=== PATIENT | male | born 1955 | race Caucasian/White ===

== ENCOUNTER 2016-02-21 06:54 | Day surgery (SDC) | payer OTHER ==
[~2016-02-21] VITALS: Ht 182.1 cm; Wt 83.9 kg
[~2016-02-21 06:54] MED LIST: CALCIUM500 M4 PO; CILOSTAZOL100 MG PO; ECHINACEA 5001 EACH PO; FISH OIL500 MG PO; LEXAPRO20 MG PO; POTASSIUM GLUCO99 M1 PO; PROTONIX40 MG PO; ZIAC 5/6.251 TABLET PO
== END 2016-02-21 12:00 | disposition home or self-care (01) ==
LOC: CATH 06:54
PROC: 04H033Z Insertion of Infusion Device into Abdominal Aorta, Percutaneous Approach (ICD-10-PCS; principal; 2016-02-21)
DX: I70.213 Atherosclerosis of native arteries of extremities with intermittent claudication, bilateral legs (principal); I70.92 Chronic total occlusion of artery of the extremities; I10 Essential (primary) hypertension
CPT/HCPCS: C1760; C1769; C1887; C1894; J0690; J1644; J2250; J3010; S0020

== ENCOUNTER 2016-03-18 07:29 | Day surgery (SDC) | payer OTHER ==
[~2016-03-18] VITALS: Ht 182.9 cm; Wt 81.7 kg
== END 2016-03-18 12:05 | disposition home or self-care (01) ==
LOC: CATH 07:29
DX: I70.212 Atherosclerosis of native arteries of extremities with intermittent claudication, left leg (principal); I70.92 Chronic total occlusion of artery of the extremities; I10 Essential (primary) hypertension
CPT/HCPCS: C1760; C1769; C1887; C1894; J1644; J2250; J3010; S0020

== ENCOUNTER 2017-08-26 20:11 | Inpatient (IN) | payer OTHER ==
[~2017-08-26] VITALS: Ht 182.9 cm; Wt 94.4 kg
[~2017-08-26 20:11] MED LIST changes: +FISH OIL 500 M1 EAC3 PO; -FISH OIL500 MG PO; +ZIAC 10/6.251 TABLET PO; -ZIAC 5/6.251 TABLET PO
[2017-08-26 20:56] LABS: HEMATOCRIT 35.4 % (38.0-50.0); HEMOGLOBIN 12.4 G/DL (12.5-16.6); MCH 32.3 PG (29.0-34.0); MCV 92.2 FL (86-99); PLATELET COUNT 299 K/uL (156-360); RBC DIS.WIDTH-CV 12.4 % (11.8-14.6); RBC DIS.WIDTH-SD 41.3 % (39-53); RED BLOOD COUNT 3.84 M/uL (4.00-5.50); WHITE BLOOD COUNT 17.1 K/uL (4.1-10.2)
[2017-08-26 21:06] LABS: CHLORIDE 101 mEq/L (99-109); POTASSIUM 3.6 mEq/L (3.7-5.4); SODIUM 139 mEq/L (136-147)
[2017-08-26 21:07] LABS: GLUCOSE 193 mg/dL (70-99)
[2017-08-26 21:11] LABS: CREATININE 1.4 mg/dL (0.6-1.3); GFR ESTIMATE (CALCULATED) 54 mL/min/ (58.99-99999)
[2017-08-26 21:12] LABS: UREA NITROGEN (BUN) 22 mg/dL (9-23)
[2017-08-27 00:41] LABS: APPEARANCE CLOUDY ((CLEAR)); BILIRUBIN NEGATIVE; BLOOD LARGE; GLUCOSE (STRIP) NEGATIVE; KETONES NEGATIVE; LEUKOCYTES NEGATIVE; NITRITE NEGATIVE; PROTEIN (STRIP) 100; SPECIFIC GRAVITY 1.024 (1.000-1.030); UROBILINOGEN 0.2 MG/DL (0.2-1.0)
[2017-08-27 00:44] LABS: COLOR RED ((YELLOW))
[2017-08-27 00:58] LABS: RED BLOOD CELLS TNTC /HPF (0-5); UCUL ADDED? YES
[2017-08-27 03:21] LABS: INTER. NORMALIZED RATIO ND
[2017-08-27 05:00] VITALS: BP 191/95
[2017-08-27 06:27] LABS: HEMATOCRIT 27.9 % (38.0-50.0); MCH 31.2 PG (29.0-34.0); MCHC 34.4 G/DL (30.0-36.0); MCV 90.6 FL (86-99); PLATELET COUNT 224 K/uL (156-360); RBC DIS.WIDTH-CV 12.4 % (11.8-14.6); RBC DIS.WIDTH-SD 40.2 % (39-53); RED BLOOD COUNT 3.08 M/uL (4.00-5.50); WHITE BLOOD COUNT 13.1 K/uL (4.1-10.2)
[2017-08-27 06:41] LABS: HEMOGLOBIN 9.6 G/DL (12.5-16.6)
[2017-08-27 06:49] LABS: INTER. NORMALIZED RATIO ND
[2017-08-27 07:10] LABS: ALBUMIN 3.6 G/DL (3.2-4.8); ALKALINE PHOSPHATASE 65 IU/L (3-129); ALT (GPT) 19 IU/L (3-49); AST (GOT) 19 IU/L (2-34); CHLORIDE 101 MEQ/L (99-109); CREATININE 1.6 MG/DL (0.6-1.3); GFR ESTIMATE (CALCULATED) 47 mL/min/ (58.99-99999); GLUCOSE 155 mg/dL (70-99); POTASSIUM 3.7 MEQ/L (3.7-5.4); SODIUM 134 MEQ/L (136-147); TOTAL PROTEIN 5.5 G/DL (6.4-8.3); UREA NITROGEN (BUN) 28 mg/dL (9-23)
[2017-08-27 07:35] VITALS: BP 148/97
[2017-08-27] MEDS ORDERED: LO-DOSE ASPIRIN81 M1 PO (15:26)
[2017-08-27] MEDS ORDERED: ATORVASTATIN CA80 MG PO (15:26)
[2017-08-27 15:34] VITALS: BP 128/65
[2017-08-27 18:04] LABS: HEMATOCRIT 23.6 % (38.0-50.0); HEMOGLOBIN 8.3 G/DL (12.5-16.6); MCV 92.2 FL (86-99)
[2017-08-27 19:45] VITALS: BP 174/84
[2017-08-27 22:33] VITALS: BP 139/77
[2017-08-28] VITALS (26 sets, daily range): BP systolic 84–168; BP diastolic 57–111
[2017-08-28 03:06] LABS: BASOPHIL (%) 0.3 % (0-1); EOSINOPHIL (%) 0.4 % (0-5); EOSINOPHIL COUNT 0.1 K/uL (0-0.3); HEMATOCRIT 23.9 % (38.0-50.0); HEMOGLOBIN 8.6 G/DL (12.5-16.6); IMMATURE GRANULOCYTE (%) 0.6 % (0.0-0.7); LYMPHOCYTE (%) 12.3 % (15-42); LYMPHOCYTE COUNT 1.7 K/uL (1.0-2.8); MCH 32.6 PG (29.0-34.0); MCV 90.5 FL (86-99); MONOCYTE (%) 10.9 % (3-12); MONOCYTE COUNT 1.5 K/uL (0-0.8); NEUTROPHIL (%) 75.5 % (45-76); NEUTROPHIL COUNT 10.6 K/uL (1.8-6.4); PLATELET COUNT 206 K/uL (156-360); RBC DIS.WIDTH-SD 42.3 % (39-53); RED BLOOD COUNT 2.64 M/uL (4.00-5.50); WHITE BLOOD COUNT 14.1 K/uL (4.1-10.2)
[2017-08-28 03:47] LABS: HEMATOCRIT 18.9 % (38.0-50.0); MCH 32.9 PG (29.0-34.0); MCV 91.3 FL (86-99); PLATELET COUNT 241 K/uL (156-360); RBC DIS.WIDTH-CV 12.9 % (11.8-14.6); RBC DIS.WIDTH-SD 42.3 % (39-53)
[2017-08-28 03:54] LABS: HEMOGLOBIN 6.8 G/DL (12.5-16.6); RED BLOOD COUNT 2.07 M/uL (4.00-5.50)
[2017-08-28 04:14] LABS: ALBUMIN 3.2 g/dL (3.2-4.8)
[2017-08-28 04:15] LABS: CHLORIDE 100 mEq/L (99-109); POTASSIUM 3.8 mEq/L (3.7-5.4); SODIUM 133 mEq/L (136-147)
[2017-08-28 04:17] LABS: GLUCOSE 151 mg/dL (70-99); TOTAL PROTEIN 5.2 g/dL (6.4-8.3)
[2017-08-28 04:19] LABS: TOTAL BILIRUBIN 1.2 mg/dL (0.0-1.0)
[2017-08-28 04:20] LABS: ALKALINE PHOSPHATASE 57 IU/L (3-129)
[2017-08-28 04:21] LABS: GFR ESTIMATE (CALCULATED) 27 mL/min/ (58.99-99999)
[2017-08-28 04:22] LABS: AST (GOT) 23 IU/L (2-34); UREA NITROGEN (BUN) 36 mg/dL (9-23)
[2017-08-28 04:24] LABS: ALT (GPT) 18 IU/L (3-49)
[2017-08-28 04:26] LABS: CREATININE 2.6 mg/dL (0.6-1.3)
[2017-08-28 09:13] LABS: APPEARANCE CLOUDY ((CLEAR)); BILIRUBIN NEGATIVE; BLOOD LARGE; COLOR AMBER ((YELLOW)); GLUCOSE (STRIP) NEGATIVE; KETONES NEGATIVE; LEUKOCYTES NEGATIVE; NITRITE NEGATIVE; PROTEIN (STRIP) 100; SPECIFIC GRAVITY 1.032 (1.000-1.030); UROBILINOGEN 0.2 MG/DL (0.2-1.0)
[2017-08-28 09:19] LABS: BACTERIA NONE SEEN /HPF; EPITHELIAL CELLS RARE /HPF; MUCUS 2+ /LPF; RED BLOOD CELLS TNTC /HPF (0-5); UCUL ADDED? YES; WHITE BLOOD CELLS 15-20 /HPF (0-5)
[2017-08-28 09:23] LABS: RETICULOCYTE COUNT 5.3 % (0.5-1.8)
[2017-08-28 09:26] LABS: HEMATOCRIT 17.7 % (38.0-50.0); MCHC 35.6 G/DL (30.0-36.0); MCV 92.7 FL (86-99); PLATELET COUNT 261 K/uL (156-360); RBC DIS.WIDTH-CV 13.2 % (11.8-14.6); RBC DIS.WIDTH-SD 43.4 % (39-53); RED BLOOD COUNT 1.91 M/uL (4.00-5.50); WHITE BLOOD COUNT 17.3 K/uL (4.1-10.2)
[2017-08-28 09:27] LABS: HEMATOCRIT 17.3 % (38.0-50.0); HEMOGLOBIN 6.3 G/DL (12.5-16.6); MCH 33.5 PG (29.0-34.0); MCHC 36.4 G/DL (30.0-36.0); PLATELET COUNT 258 K/uL (156-360); RBC DIS.WIDTH-CV 13.1 % (11.8-14.6); RBC DIS.WIDTH-SD 42.7 % (39-53); RED BLOOD COUNT 1.88 M/uL (4.00-5.50); WHITE BLOOD COUNT 17.4 K/uL (4.1-10.2)
[2017-08-28 09:29] LABS: HEMOGLOBIN 6.3 G/DL (12.5-16.6)
[2017-08-28 09:53] LABS: FIBRINOGEN 469 mg/dL (150-450); INTER. NORMALIZED RATIO 10.3
[2017-08-28 09:54] LABS: ABS NEUTROPHIL COUNT 15.2; ANISOCYTOSIS 1+; EOSINOPHIL ABS CT 0; HYPOCHROMASIA 1+; LYMPHOCYTES 10.1 % (15.0-45.0); MICROCYTOSIS 1+; MONOCYTES 2.3 % (0-9.0); NUCLEATED RBC'S 3.4; PLAT.SUFFICIENCY ADEQUATE; POIKILOCYTOSIS 1+; POLYCHROMASIA 2+; SEG.NEUTROPHILS 87.6 % (46.0-76.0); SMUDGE CELLS 43.8
[2017-08-28 10:02] LABS: UR CREATININE CONCENTRATION 189.6 MG/DL
[2017-08-28 10:09] LABS: BASOPHIL (%) 0.2 % (0-1); EOSINOPHIL (%) 0 % (0-5); IMMATURE GRANULOCYTE (%) 1.2 % (0.0-0.7); LYMPHOCYTE (%) 7.3 % (15-42); LYMPHOCYTE COUNT 1.3 K/uL (1.0-2.8); MONOCYTE (%) 7.4 % (3-12); MONOCYTE COUNT 1.3 K/uL (0-0.8); NEUTROPHIL (%) 83.9 % (45-76); NEUTROPHIL COUNT 14.5 K/uL (1.8-6.4)
[2017-08-28 10:13] LABS: D-DIMER LATEX NEGATIVE
[2017-08-28 10:14] LABS: SCHISTOCYTES NONE SEEN
[2017-08-28 10:15] LABS: ALBUMIN 3.2 G/DL (3.2-4.8); ALKALINE PHOSPHATASE 45 IU/L (3-129); ALT (GPT) 15 IU/L (3-49); AST (GOT) 21 IU/L (2-34); CHLORIDE 99 MEQ/L (99-109); GFR ESTIMATE (CALCULATED) 23 mL/min/ (58.99-99999); GLUCOSE 180 mg/dL (70-99); LACTATE DEHYDROGENASE 209 IU/L (20-246); POTASSIUM 4.1 MEQ/L (3.7-5.4); SODIUM 133 MEQ/L (136-147); THYROTROPIN (TSH) 2.3 MIU/L (0.4-5.5); TRIGLYCERIDES 692 MG/DL (Normal: <150); UREA NITROGEN (BUN) 40 mg/dL (9-23)
[2017-08-28 10:18] LABS: HIGH-SENS C-REACTIVE PROTEIN 14.65 MG/DL (0.02-0.20); TOTAL BILIRUBIN 1.6 MG/DL (0.0-1.0)
[2017-08-28 11:17] LABS: IMMEDIATE MIX PTT 24.8 SEC; PTT BASELINE 57 SEC (25-32)
[2017-08-28 11:26] LABS: HEPATITIS B SURFACE ANTIGEN Nonreactive; HEPATITIS C ANTIBODY Nonreactive
[2017-08-28 11:27] LABS: ANTI-HEPATITIS A VIRUS (IGM) Nonreactive
[2017-08-28 11:28] LABS: ANTI-HEPATITIS B CORE (IGM) Nonreactive; HIV-1/2 AB/AG COMBO Nonreactive
[2017-08-28 12:48] LABS: 60 MINUTE INCUBATION PTT 25.7
[2017-08-28 15:55] LABS: BENZODIAZEPINES, URINE SCREEN Negative (200 ng/mL)
[2017-08-28 18:29] LABS: HEMATOCRIT 19.1 % (38.0-50.0); MCH 32.1 PG (29.0-34.0); MCHC 35.6 G/DL (30.0-36.0); MCV 90.1 FL (86-99); NRBC (%) 0.2 /100 WBC (0-0); RBC DIS.WIDTH-SD 45.6 % (39-53); RED BLOOD COUNT 2.12 M/uL (4.00-5.50); WHITE BLOOD COUNT 9.1 K/uL (4.1-10.2)
[2017-08-28 18:32] LABS: HEMOGLOBIN 6.8 G/DL (12.5-16.6)
[2017-08-28 19:09] LABS: PLAT.SUFFICIENCY ADEQUATE; PLATELET COUNT 162 K/uL (156-360)
[2017-08-28 19:25] LABS: INTER. NORMALIZED RATIO 1.4; PTT 29.5 SEC (25-37)
[2017-08-29] VITALS (29 sets, daily range): BP systolic 91–127; BP diastolic 48–78
[2017-08-29 05:34] LABS: BASOPHIL (%) 0.1 % (0-1); EOSINOPHIL (%) 0.1 % (0-5); HEMATOCRIT 23.1 % (38.0-50.0); HEMOGLOBIN 7.8 G/DL (12.5-16.6); IMMATURE GRANULOCYTE (%) 0.9 % (0.0-0.7); LYMPHOCYTE (%) 4.1 % (15-42); LYMPHOCYTE COUNT 0.4 K/uL (1.0-2.8); MCH 29.5 PG (29.0-34.0); MCHC 33.8 G/DL (30.0-36.0); MCV 87.5 FL (86-99); MONOCYTE (%) 2.9 % (3-12); MONOCYTE COUNT 0.3 K/uL (0-0.8); NEUTROPHIL (%) 91.9 % (45-76); NEUTROPHIL COUNT 8.8 K/uL (1.8-6.4); PLATELET COUNT 148 K/uL (156-360); RBC DIS.WIDTH-SD 50.6 % (39-53); WHITE BLOOD COUNT 9.5 K/uL (4.1-10.2)
[2017-08-29 05:39] LABS: INTER. NORMALIZED RATIO 2.1
[2017-08-29 05:42] LABS: PTT 32.6 SEC (25-37)
[2017-08-29 05:55] LABS: RED BLOOD COUNT 2.64 M/uL (4.00-5.50)
[2017-08-29 06:33] LABS: ALBUMIN 2.9 G/DL (3.2-4.8); ALKALINE PHOSPHATASE 46 IU/L (3-129); ALT (GPT) 13 IU/L (3-49); AST (GOT) 19 IU/L (2-34); CHLORIDE 102 MEQ/L (99-109); CREATINE KINASE 63 IU/L (1-294); CREATININE 3.2 MG/DL (0.6-1.3); GFR ESTIMATE (CALCULATED) 21 mL/min/ (58.99-99999); GLUCOSE 221 mg/dL (70-99); POTASSIUM 4.5 MEQ/L (3.7-5.4); SODIUM 133 MEQ/L (136-147); TOTAL PROTEIN 4.8 G/DL (6.4-8.3); UREA NITROGEN (BUN) 44 mg/dL (9-23)
[2017-08-29 06:38] LABS: TOTAL BILIRUBIN 0.9 MG/DL (0.0-1.0)
[2017-08-29 08:53] LABS: TRIGLYCERIDES 261 MG/DL (Normal: <150)
[2017-08-29 10:17] LABS: LYME DISEASE SEROLOGY SCREEN NEGATIVE (NEGATIVE)
[2017-08-29 11:58] LABS: VANCOMYCIN, TROUGH 10.1 MCG/ML (10-20)
[2017-08-29 14:42] LABS: INTER. NORMALIZED RATIO 3.1
[2017-08-29 14:45] LABS: PTT 23.5 SEC (25-37)
[2017-08-29 14:51] LABS: Rickettsia (RMSF) IgG Not Detected (Not Detected); Rickettsia (RMSF) IgM Not Detected (Not Detected)
[2017-08-29 14:54] LABS: CHLORIDE 107 mEq/L (99-109); POTASSIUM 4.6 mEq/L (3.7-5.4); SODIUM 134 mEq/L (136-147)
[2017-08-29 14:56] LABS: GLUCOSE 200 mg/dL (70-99)
[2017-08-29 14:59] LABS: GFR ESTIMATE (CALCULATED) 23 mL/min/ (58.99-99999)
[2017-08-29 15:00] LABS: UREA NITROGEN (BUN) 44 mg/dL (9-23)
[2017-08-30] VITALS (37 sets, daily range): BP systolic 97–128; BP diastolic 52–73
[2017-08-30 03:28] LABS: HEMATOCRIT 19.4 % (38.0-50.0); MCH 30.3 PG (29.0-34.0); NRBC (%) 0.4 /100 WBC (0-0); PLATELET COUNT 152 K/uL (156-360); RBC DIS.WIDTH-CV 16.5 % (11.8-14.6); RBC DIS.WIDTH-SD 52.5 % (39-53); RED BLOOD COUNT 2.18 M/uL (4.00-5.50); WHITE BLOOD COUNT 7.7 K/uL (4.1-10.2)
[2017-08-30 03:29] LABS: INTER. NORMALIZED RATIO 2.7
[2017-08-30 03:30] LABS: HEMOGLOBIN 6.6 G/DL (12.5-16.6)
[2017-08-30 03:33] LABS: CHLORIDE 108 mEq/L (99-109); SODIUM 139 mEq/L (136-147)
[2017-08-30 03:37] LABS: TOTAL BILIRUBIN 0.5 mg/dL (0.0-1.0)
[2017-08-30 03:38] LABS: PTT 35.6 SEC (25-37)
[2017-08-30 03:39] LABS: PHOSPHORUS 4.6 mg/dL (2.5-4.9)
[2017-08-30 03:41] LABS: AST (GOT) 18 IU/L (2-34)
[2017-08-30 03:45] LABS: ALBUMIN 3.3 g/dL (3.2-4.8)
[2017-08-30 03:48] LABS: GLUCOSE 210 mg/dL (70-99); TOTAL PROTEIN 5.2 g/dL (6.4-8.3)
[2017-08-30 03:51] LABS: ALKALINE PHOSPHATASE 56 IU/L (3-129)
[2017-08-30 03:52] LABS: GFR ESTIMATE (CALCULATED) 29 mL/min/ (58.99-99999)
[2017-08-30 03:53] LABS: UREA NITROGEN (BUN) 41 mg/dL (9-23)
[2017-08-30 03:54] LABS: ALT (GPT) 17 IU/L (3-49)
[2017-08-30 04:01] LABS: CREATININE 2.4 mg/dL (0.6-1.3)
[2017-08-30 06:00] LABS: ABS NEUTROPHIL COUNT 7.2; ANISOCYTOSIS 1+; EOSINOPHIL ABS CT 0; LYMPHOCYTES 4.4 % (15.0-45.0); MICROCYTOSIS 1+; MONOCYTES 1.7 % (0-9.0); PLATELET CLUMPS PRESENT - PLATELET COUNT APPEARS ADQ.; POLYCHROMASIA 1+; SEG.NEUTROPHILS 93.9 % (46.0-76.0)
[2017-08-30 08:34] LABS: HEMATOCRIT 23.9 % (38.0-50.0); HEMOGLOBIN 7.9 G/DL (12.5-16.6); MCV 90.5 FL (86-99)
[2017-08-30 17:02] LABS: INTER. NORMALIZED RATIO 1.7
[2017-08-30 17:05] LABS: PTT 30.1 SEC (25-37)
[2017-08-30 20:13] LABS: HEMOGLOBIN 7.5 G/DL (12.5-16.6); MCH 30.9 PG (29.0-34.0); MCHC 34.1 G/DL (30.0-36.0); MCV 90.5 FL (86-99); NRBC (%) 0.5 /100 WBC (0-0); PLATELET COUNT 177 K/uL (156-360); RBC DIS.WIDTH-CV 16.2 % (11.8-14.6); RBC DIS.WIDTH-SD 52.9 % (39-53); RED BLOOD COUNT 2.43 M/uL (4.00-5.50); WHITE BLOOD COUNT 8.1 K/uL (4.1-10.2)
[2017-08-30 20:23] LABS: CHLORIDE 110 mEq/L (99-109); POTASSIUM 3.8 mEq/L (3.7-5.4); SODIUM 142 mEq/L (136-147)
[2017-08-30 20:25] LABS: GLUCOSE 183 mg/dL (70-99)
[2017-08-30 20:27] LABS: INTER. NORMALIZED RATIO 1.6
[2017-08-30 20:29] LABS: GFR ESTIMATE (CALCULATED) 41 mL/min/ (58.99-99999)
[2017-08-30 20:30] LABS: UREA NITROGEN (BUN) 38 mg/dL (9-23)
[2017-08-30 20:31] LABS: CREATININE 1.8 mg/dL (0.6-1.3)
[2017-08-31] VITALS (24 sets, daily range): BP systolic 96–181; BP diastolic 52–101
[2017-08-31 03:55] LABS: INTER. NORMALIZED RATIO 1.4
[2017-08-31 03:56] LABS: ALBUMIN 3.5 g/dL (3.2-4.8)
[2017-08-31 03:57] LABS: CHLORIDE 108 mEq/L (99-109); POTASSIUM 4.1 mEq/L (3.7-5.4); SODIUM 141 mEq/L (136-147)
[2017-08-31 03:59] LABS: GLUCOSE 173 mg/dL (70-99); TOTAL PROTEIN 5.8 g/dL (6.4-8.3)
[2017-08-31 04:00] LABS: HEMATOCRIT 23.3 % (38.0-50.0); HEMOGLOBIN 7.8 G/DL (12.5-16.6); MCH 30.8 PG (29.0-34.0); MCHC 33.5 G/DL (30.0-36.0); MCV 92.1 FL (86-99); NRBC (%) 1.4 /100 WBC (0-0); RBC DIS.WIDTH-CV 16.7 % (11.8-14.6); RBC DIS.WIDTH-SD 54.4 % (39-53); RED BLOOD COUNT 2.53 M/uL (4.00-5.50); WHITE BLOOD COUNT 8.4 K/uL (4.1-10.2)
[2017-08-31 04:01] LABS: TOTAL BILIRUBIN 0.7 mg/dL (0.0-1.0)
[2017-08-31 04:02] LABS: ALKALINE PHOSPHATASE 57 IU/L (3-129)
[2017-08-31 04:03] LABS: CREATININE 1.7 mg/dL (0.6-1.3); GFR ESTIMATE (CALCULATED) 43 mL/min/ (58.99-99999)
[2017-08-31 04:04] LABS: AST (GOT) 25 IU/L (2-34); UREA NITROGEN (BUN) 38 mg/dL (9-23)
[2017-08-31 04:05] LABS: ALT (GPT) 24 IU/L (3-49)
[2017-08-31 07:11] LABS: ABS NEUTROPHIL COUNT 7.2; ANISOCYTOSIS 2+; ATYPICAL LYMPHOCYTE 0.9 %; BAND NEUTROPHILS 2.8 % (0-8.0); BASOPH.STIPPLING 1+; EOSINOPHIL ABS CT 0; HYPOCHROMASIA 2+; LYMPHOCYTES 7.5 % (15.0-45.0); MACROCYTES 1+; METAMYELOCYTES 0.9 %; MICROCYTOSIS 1+; MONOCYTES 4.7 % (0-9.0); PLATELET CLUMPS PRESENT - PLATELET COUNTS APPEARS DECREASED; PLATELET COUNT UNABLE TO REPORT K/uL (156-360); POLYCHROMASIA 1+; SEG.NEUTROPHILS 83.2 % (46.0-76.0)
[2017-08-31 09:38] LABS: HAPTOGLOBIN+ 220 mg/dL (43-212)
[2017-08-31 11:49] LABS: TREPONEMA ANTIBODY NEGATIVE (NEGATIVE)
[2017-08-31 12:54] LABS: Neutrophil Cytoplasmic Aby Negative
[2017-08-31 14:16] LABS: INTER. NORMALIZED RATIO 1.5
[2017-08-31 14:19] LABS: PTT 27.1 SEC (25-37)
[2017-08-31 18:06] LABS: HEMOGLOBIN 7.6 G/DL (12.5-16.6); MCH 30.6 PG (29.0-34.0); MCV 92.7 FL (86-99); NRBC (%) 1.5 /100 WBC (0-0); PLATELET COUNT 223 K/uL (156-360); RBC DIS.WIDTH-CV 17.1 % (11.8-14.6); RBC DIS.WIDTH-SD 55.2 % (39-53); RED BLOOD COUNT 2.48 M/uL (4.00-5.50); WHITE BLOOD COUNT 8.9 K/uL (4.1-10.2)
[2017-09-01] VITALS (23 sets, daily range): BP systolic 111–149; BP diastolic 60–80
[2017-09-01 05:48] LABS: HEMATOCRIT 24.5 % (38.0-50.0); HEMOGLOBIN 7.7 G/DL (12.5-16.6); MCH 29.7 PG (29.0-34.0); MCHC 31.4 G/DL (30.0-36.0); MCV 94.6 FL (86-99); NRBC (%) 1.9 /100 WBC (0-0); PLATELET COUNT 226 K/uL (156-360); RBC DIS.WIDTH-CV 17.3 % (11.8-14.6); RED BLOOD COUNT 2.59 M/uL (4.00-5.50)
[2017-09-01 06:01] LABS: INTER. NORMALIZED RATIO 1.8
[2017-09-01 06:03] LABS: PTT 27.5 SEC (25-37)
[2017-09-01 06:14] LABS: ABS NEUTROPHIL COUNT 6.8; ACANTHOCYTES 1+; ANISOCYTOSIS 1+; BASOPHILS 0.9 %; BURR CELLS 1+; EOSINOPHIL ABS CT 0; LYMPHOCYTES 8.2 % (15.0-45.0); MICROCYTOSIS 1+; MONOCYTES 3.6 % (0-9.0); MYELOCYTES 1.8 %; NUCLEATED RBC'S 3.6; PLAT.SUFFICIENCY ADEQUATE; SEG.NEUTROPHILS 85.5 % (46.0-76.0); TEAR DROP CELLS 1+
[2017-09-01 06:18] LABS: ALBUMIN 3.3 G/DL (3.2-4.8); ALKALINE PHOSPHATASE 46 IU/L (3-129); ALT (GPT) 16 IU/L (3-49); AST (GOT) 14 IU/L (2-34); CHLORIDE 109 MEQ/L (99-109); CREATININE 1.3 MG/DL (0.6-1.3); GFR ESTIMATE (CALCULATED) > 59 mL/min/ (58.99-99999); GLUCOSE 185 mg/dL (70-99); MAGNESIUM 2.1 mg/dl (1.3-2.7); PHOSPHORUS 3.9 mg/dL (2.5-4.9); POTASSIUM 4.1 MEQ/L (3.7-5.4); SODIUM 144 MEQ/L (136-147); TOTAL BILIRUBIN 0.7 MG/DL (0.0-1.0); TOTAL PROTEIN 5.4 G/DL (6.4-8.3); UREA NITROGEN (BUN) 37 mg/dL (9-23)
[2017-09-01 20:56] LABS: COAG FACTOR V ACTIVITY+ 124 % (65-150); COAG FACTOR VII ASSAY+ 29 % (60-150); COAG FACTOR X Activity+ 50 % (70-150)
[2017-09-02] VITALS (22 sets, daily range): BP systolic 110–199; BP diastolic 60–120
[2017-09-02 06:06] LABS: ALKALINE PHOSPHATASE 49 IU/L (3-129); ALT (GPT) 18 IU/L (3-49); AST (GOT) 13 IU/L (2-34); CHLORIDE 110 MEQ/L (99-109); CREATININE 1.1 MG/DL (0.6-1.3); GFR ESTIMATE (CALCULATED) > 59 mL/min/ (58.99-99999); GLUCOSE 184 mg/dL (70-99); MAGNESIUM 2.1 mg/dl (1.3-2.7); PHOSPHORUS 3.5 mg/dL (2.5-4.9); POTASSIUM 4.1 MEQ/L (3.7-5.4); SODIUM 145 MEQ/L (136-147); TOTAL BILIRUBIN 0.7 MG/DL (0.0-1.0); UREA NITROGEN (BUN) 41 mg/dL (9-23)
[2017-09-02 06:47] LABS: HEMATOCRIT 24.9 % (38.0-50.0); HEMOGLOBIN 8.1 G/DL (12.5-16.6); MCH 30.3 PG (29.0-34.0); MCHC 32.5 G/DL (30.0-36.0); MCV 93.3 FL (86-99); NRBC (%) 3.3 /100 WBC (0-0); PLATELET COUNT 255 K/uL (156-360); RBC DIS.WIDTH-SD 54.4 % (39-53); RED BLOOD COUNT 2.67 M/uL (4.00-5.50)
[2017-09-02 07:30] LABS: ABS NEUTROPHIL COUNT 5.8; ANISOCYTOSIS 1+; BAND NEUTROPHILS 1.7 % (0-8.0); EOSINOPHIL ABS CT 0; HEMATOLOGY COMMENT 1 SN; LYMPHOCYTES 11.4 % (15.0-45.0); MICROCYTOSIS 1+; MONOCYTES 5.3 % (0-9.0); NUCLEATED RBC'S 4.4; PLAT.SUFFICIENCY ADEQUATE; POLYCHROMASIA 1+; SEG.NEUTROPHILS 81.6 % (46.0-76.0)
[2017-09-02 09:28] LABS: INTER. NORMALIZED RATIO 2.4
[2017-09-02 09:31] LABS: PTT 26.2 SEC (25-37)
[2017-09-03] VITALS (23 sets, daily range): BP systolic 107–206; BP diastolic 60–128
[2017-09-03 05:06] LABS: BASOPHIL (%) 0.1 % (0-1); EOSINOPHIL (%) 0 % (0-5); HEMATOCRIT 25.9 % (38.0-50.0); HEMOGLOBIN 8.3 G/DL (12.5-16.6); IMMATURE GRANULOCYTE (%) 4.8 % (0.0-0.7); LYMPHOCYTE (%) 7.2 % (15-42); LYMPHOCYTE COUNT 0.7 K/uL (1.0-2.8); MCH 29.7 PG (29.0-34.0); MCV 92.8 FL (86-99); MONOCYTE (%) 6.4 % (3-12); MONOCYTE COUNT 0.6 K/uL (0-0.8); NEUTROPHIL (%) 81.5 % (45-76); NEUTROPHIL COUNT 7.5 K/uL (1.8-6.4); NRBC (%) 2.8 /100 WBC (0-0); PLATELET COUNT 258 K/uL (156-360); RBC DIS.WIDTH-CV 16.7 % (11.8-14.6); RED BLOOD COUNT 2.79 M/uL (4.00-5.50); WHITE BLOOD COUNT 9.2 K/uL (4.1-10.2)
[2017-09-03 05:31] LABS: INTER. NORMALIZED RATIO 2.3
[2017-09-03 05:34] LABS: PTT 28.4 SEC (25-37)
[2017-09-03 05:41] LABS: ALKALINE PHOSPHATASE 42 IU/L (3-129); ALT (GPT) 20 IU/L (3-49); AST (GOT) 15 IU/L (2-34); CHLORIDE 111 MEQ/L (99-109); CREATININE 1.1 MG/DL (0.6-1.3); GFR ESTIMATE (CALCULATED) > 59 mL/min/ (58.99-99999); GLUCOSE 206 mg/dL (70-99); POTASSIUM 3.5 MEQ/L (3.7-5.4); SODIUM 147 MEQ/L (136-147); TOTAL BILIRUBIN 0.7 MG/DL (0.0-1.0); UREA NITROGEN (BUN) 45 mg/dL (9-23)
[2017-09-04] VITALS (20 sets, daily range): BP systolic 124–182; BP diastolic 56–98
[2017-09-04 06:00] LABS: BASOPHIL (%) 0.1 % (0-1); EOSINOPHIL (%) 0.1 % (0-5); HEMATOCRIT 29.1 % (38.0-50.0); HEMOGLOBIN 9.5 G/DL (12.5-16.6); LYMPHOCYTE (%) 5.3 % (15-42); LYMPHOCYTE COUNT 0.9 K/uL (1.0-2.8); MCH 30.4 PG (29.0-34.0); MCHC 32.6 G/DL (30.0-36.0); MONOCYTE (%) 6.5 % (3-12); MONOCYTE COUNT 1.1 K/uL (0-0.8); NEUTROPHIL COUNT 13.6 K/uL (1.8-6.4); PLATELET COUNT 278 K/uL (156-360); RBC DIS.WIDTH-CV 18.5 % (11.8-14.6); RBC DIS.WIDTH-SD 54.7 % (39-53); RED BLOOD COUNT 3.13 M/uL (4.00-5.50); WHITE BLOOD COUNT 16.4 K/uL (4.1-10.2)
[2017-09-04 06:25] LABS: ALBUMIN 3.3 G/DL (3.2-4.8); ALKALINE PHOSPHATASE 51 IU/L (3-129); ALT (GPT) 26 IU/L (3-49); AST (GOT) 35 IU/L (2-34); CHLORIDE 113 MEQ/L (99-109); CREATININE 1.2 MG/DL (0.6-1.3); GFR ESTIMATE (CALCULATED) > 59 mL/min/ (58.99-99999); GLUCOSE 127 mg/dL (70-99); POTASSIUM 3.9 MEQ/L (3.7-5.4); SODIUM 153 MEQ/L (136-147); TOTAL PROTEIN 5.3 G/DL (6.4-8.3); UREA NITROGEN (BUN) 45 mg/dL (9-23)
[2017-09-04 06:43] LABS: TOTAL BILIRUBIN 1.7 MG/DL (0.0-1.0)
[2017-09-05 00:22] VITALS: BP 186/87
[2017-09-05 03:47] VITALS: BP 157/73
[2017-09-05 06:36] LABS: INTER. NORMALIZED RATIO 1.4
[2017-09-05 06:39] LABS: PTT 26.1 SEC (25-37)
[2017-09-05 07:18] VITALS: BP 199/64
[2017-09-05 08:13] LABS: BASOPHIL (%) 0 % (0-1); EOSINOPHIL (%) 0 % (0-5); HEMATOCRIT 28.8 % (38.0-50.0); HEMOGLOBIN 9.2 G/DL (12.5-16.6); IMMATURE GRANULOCYTE (%) 1.4 % (0.0-0.7); LYMPHOCYTE (%) 7.4 % (15-42); LYMPHOCYTE COUNT 0.8 K/uL (1.0-2.8); MCH 29.8 PG (29.0-34.0); MCHC 31.9 G/DL (30.0-36.0); MCV 93.2 FL (86-99); MONOCYTE (%) 6.8 % (3-12); MONOCYTE COUNT 0.7 K/uL (0-0.8); NEUTROPHIL (%) 84.4 % (45-76); NEUTROPHIL COUNT 9.2 K/uL (1.8-6.4); NRBC (%) 0.3 /100 WBC (0-0); RBC DIS.WIDTH-CV 17.6 % (11.8-14.6); RBC DIS.WIDTH-SD 57.9 % (39-53); RED BLOOD COUNT 3.09 M/uL (4.00-5.50); WHITE BLOOD COUNT 10.9 K/uL (4.1-10.2)
[2017-09-05 08:21] LABS: CHLORIDE 107 MEQ/L (99-109); CREATININE 1.2 MG/DL (0.6-1.3); GFR ESTIMATE (CALCULATED) > 59 mL/min/ (58.99-99999); GLUCOSE 128 mg/dL (70-99); POTASSIUM 3.7 MEQ/L (3.7-5.4); SODIUM 147 MEQ/L (136-147); UREA NITROGEN (BUN) 41 mg/dL (9-23)
[2017-09-05 08:36] LABS: PLATELET COUNT 189 K/uL (156-360)
[2017-09-05 11:07] VITALS: BP 187/82
[2017-09-05 15:08] VITALS: BP 121/33
[2017-09-05 20:04] VITALS: BP 184/86
[2017-09-06 00:08] VITALS: BP 169/83
[2017-09-06 03:42] VITALS: BP 168/81
[2017-09-06 06:05] LABS: HEMATOCRIT 28.9 % (38.0-50.0); HEMOGLOBIN 9.4 G/DL (12.5-16.6); MCHC 32.5 G/DL (30.0-36.0); MCV 92.3 FL (86-99); PLATELET COUNT 142 K/uL (156-360); RBC DIS.WIDTH-CV 16.4 % (11.8-14.6); RBC DIS.WIDTH-SD 53.8 % (39-53); RED BLOOD COUNT 3.13 M/uL (4.00-5.50); WHITE BLOOD COUNT 9.4 K/uL (4.1-10.2)
[2017-09-06 06:28] LABS: ALBUMIN 3.1 G/DL (3.2-4.8); ALKALINE PHOSPHATASE 40 IU/L (3-129); ALT (GPT) 25 IU/L (3-49); AST (GOT) 29 IU/L (2-34); CHLORIDE 103 MEQ/L (99-109); CREATININE 1.2 MG/DL (0.6-1.3); GFR ESTIMATE (CALCULATED) > 59 mL/min/ (58.99-99999); GLUCOSE 148 mg/dL (70-99); POTASSIUM 3.9 MEQ/L (3.7-5.4); SODIUM 141 MEQ/L (136-147); TOTAL PROTEIN 4.9 G/DL (6.4-8.3); UREA NITROGEN (BUN) 41 mg/dL (9-23)
[2017-09-06 06:29] LABS: TOTAL BILIRUBIN 2.2 MG/DL (0.0-1.0)
[2017-09-06 07:03] VITALS: BP 175/79
[2017-09-06 11:03] VITALS: BP 172/80
[2017-09-06 14:31] LABS: INTER. NORMALIZED RATIO 1.3
[2017-09-06 14:34] LABS: PTT 23.9 SEC (25-37)
[2017-09-06 14:57] VITALS: BP 142/69
[2017-09-06 20:14] VITALS: BP 129/75
[2017-09-07 00:48] VITALS: BP 122/59
[2017-09-07 07:39] VITALS: BP 154/73
[2017-09-07 15:14] VITALS: BP 125/63
[2017-09-07 21:22] VITALS: BP 107/67
[2017-09-08 08:09] VITALS: BP 139/65
[2017-09-08 11:11] LABS: HEMATOCRIT 30.5 % (38.0-50.0); HEMOGLOBIN 10.1 G/DL (12.5-16.6); MCH 30.7 PG (29.0-34.0); MCHC 33.1 G/DL (30.0-36.0); MCV 92.7 FL (86-99); PLATELET COUNT 111 K/uL (156-360); RBC DIS.WIDTH-CV 16.3 % (11.8-14.6); RBC DIS.WIDTH-SD 53.9 % (39-53); RED BLOOD COUNT 3.29 M/uL (4.00-5.50); WHITE BLOOD COUNT 10.6 K/uL (4.1-10.2)
[2017-09-08 11:45] LABS: ABS NEUTROPHIL COUNT 8.8; ANISOCYTOSIS 1+; EOSINOPHIL ABS CT 0; LYMPHOCYTES 16.5 % (15.0-45.0); MONOCYTES 0.9 % (0-9.0); PLAT.SUFFICIENCY DECREASED; POLYCHROMASIA 1+; SEG.NEUTROPHILS 82.6 % (46.0-76.0)
[2017-09-08 15:51] VITALS: BP 132/67
[2017-09-08 18:58] LABS: ERTH.SED.RATE 7 MM/HR (0-20)
[2017-09-08 19:08] LABS: ALBUMIN 3.3 G/DL (3.2-4.8); ALKALINE PHOSPHATASE 42 IU/L (3-129); ALT (GPT) 38 IU/L (3-49); AST (GOT) 23 IU/L (2-34); C-REACTIVE PROTEIN 14.4 MG/L (0-10); DIRECT BILIRUBIN 0.5 mg/dL (0.0-0.3); TOTAL BILIRUBIN 2.3 MG/DL (0.0-1.0)
[2017-09-08 22:25] LABS: APPEARANCE CLEAR ((CLEAR)); BILIRUBIN NEGATIVE; BLOOD SMALL; COLOR YELLOW ((YELLOW)); GLUCOSE (STRIP) NEGATIVE; KETONES NEGATIVE; LEUKOCYTES NEGATIVE; NITRITE NEGATIVE; PROTEIN (STRIP) NEGATIVE; SPECIFIC GRAVITY 1.011 (1.000-1.030); UROBILINOGEN 0.2 MG/DL (0.2-1.0)
[2017-09-08 22:30] LABS: BACTERIA RARE /HPF; EPITHELIAL CELLS NONE SEEN /HPF; MUCUS NONE SEEN /LPF; RED BLOOD CELLS 0-5 /HPF (0-5); UCUL ADDED? NO; WHITE BLOOD CELLS 0-5 /HPF (0-5)
[2017-09-09 00:18] VITALS: BP 116/63
[2017-09-09 06:03] LABS: BASOPHIL (%) 0.1 % (0-1); EOSINOPHIL (%) 0.1 % (0-5); HEMATOCRIT 33.5 % (38.0-50.0); HEMOGLOBIN 10.8 G/DL (12.5-16.6); IMMATURE GRANULOCYTE (%) 0.8 % (0.0-0.7); LYMPHOCYTE (%) 16.1 % (15-42); LYMPHOCYTE COUNT 1.4 K/uL (1.0-2.8); MCH 30.4 PG (29.0-34.0); MCHC 32.2 G/DL (30.0-36.0); MCV 94.4 FL (86-99); MONOCYTE (%) 8.2 % (3-12); MONOCYTE COUNT 0.7 K/uL (0-0.8); NEUTROPHIL (%) 74.7 % (45-76); NEUTROPHIL COUNT 6.3 K/uL (1.8-6.4); NRBC (%) 0.2 /100 WBC (0-0); PLATELET COUNT 115 K/uL (156-360); RBC DIS.WIDTH-CV 16.2 % (11.8-14.6); RBC DIS.WIDTH-SD 55.1 % (39-53); RED BLOOD COUNT 3.55 M/uL (4.00-5.50); WHITE BLOOD COUNT 8.5 K/uL (4.1-10.2)
[2017-09-09 06:44] LABS: INTER. NORMALIZED RATIO 1.1
[2017-09-09 06:48] LABS: CHLORIDE 106 MEQ/L (99-109); CREATININE 1.1 MG/DL (0.6-1.3); GFR ESTIMATE (CALCULATED) > 59 mL/min/ (58.99-99999); POTASSIUM 3.7 MEQ/L (3.7-5.4); SODIUM 142 MEQ/L (136-147); UREA NITROGEN (BUN) 27 mg/dL (9-23)
[2017-09-09 06:52] LABS: GLUCOSE 95 mg/dL (70-99)
[2017-09-09 06:58] VITALS: BP 163/70
[2017-09-09 12:05] VITALS: BP 125/59
[2017-09-09 15:16] VITALS: BP 109/59
[2017-09-09 23:24] VITALS: BP 131/61
[2017-09-10 05:37] LABS: BASOPHIL (%) 0.1 % (0-1); EOSINOPHIL (%) 0.6 % (0-5); EOSINOPHIL COUNT 0.1 K/uL (0-0.3); HEMATOCRIT 32.9 % (38.0-50.0); HEMOGLOBIN 10.9 G/DL (12.5-16.6); IMMATURE GRANULOCYTE (%) 0.5 % (0.0-0.7); LYMPHOCYTE (%) 20.9 % (15-42); LYMPHOCYTE COUNT 1.8 K/uL (1.0-2.8); MCHC 33.1 G/DL (30.0-36.0); MCV 93.5 FL (86-99); MONOCYTE (%) 7.7 % (3-12); MONOCYTE COUNT 0.7 K/uL (0-0.8); NEUTROPHIL (%) 70.2 % (45-76); NEUTROPHIL COUNT 6.1 K/uL (1.8-6.4); PLATELET COUNT 129 K/uL (156-360); RBC DIS.WIDTH-CV 16.7 % (11.8-14.6); RBC DIS.WIDTH-SD 56.1 % (39-53); RED BLOOD COUNT 3.52 M/uL (4.00-5.50); WHITE BLOOD COUNT 8.7 K/uL (4.1-10.2)
[2017-09-10 06:46] LABS: ALBUMIN 3.4 G/DL (3.2-4.8); ALKALINE PHOSPHATASE 52 IU/L (3-129); ALT (GPT) 36 IU/L (3-49); AST (GOT) 21 IU/L (2-34); CHLORIDE 105 MEQ/L (99-109); CREATININE 1.2 MG/DL (0.6-1.3); GFR ESTIMATE (CALCULATED) > 59 mL/min/ (58.99-99999); GLUCOSE 95 mg/dL (70-99); POTASSIUM 3.7 MEQ/L (3.7-5.4); SODIUM 137 MEQ/L (136-147); TOTAL BILIRUBIN 2.6 MG/DL (0.0-1.0); TOTAL PROTEIN 5.5 G/DL (6.4-8.3); UREA NITROGEN (BUN) 29 mg/dL (9-23)
[2017-09-10 07:44] VITALS: BP 119/66
[2017-09-10] MEDS ORDERED: IMDUR30 MG PO (08:47)
[2017-09-10] MEDS ORDERED: LOPRESSOR100 M1 PO (08:47)
== END 2017-09-10 13:16 | disposition home or self-care (01) | DRG 963 ==
LOC: RME 20:11 → EME 20:11 → EDOF 08-27 02:23 → 3EAST 08-27 02:23 → ENRESERV 08-27 02:43 → CANRESERV 08-27 02:43 → ENRESERV 08-27 03:41 → 3EAST 08-27 04:41 → ENRESERVDT 08-28 06:04 → ENRESERV 08-28 06:04 → ENRESERVTM 08-28 06:04 → 4WEST 08-28 06:12 → ENRESERV 09-04 16:38 → 5SOUTH 09-04 19:48 → ENPENDDIS 09-10 13:15 → 5SOUTH 09-10 13:16
PROVIDERS: Hospitalist; Internal Medicine; Internal Medicine Medical Oncology; Physician Assistant; Physician Assistant Surgical; Specialist; Surgery
PROC: 0BH18EZ Insertion of Endotracheal Airway into Trachea, Via Natural or Artificial Opening Endoscopic (ICD-10-PCS; principal; 2017-08-28)
PROC: 30233N1 Transfusion of Nonautologous Red Blood Cells into Peripheral Vein, Percutaneous Approach (ICD-10-PCS; principal; 2017-08-28)
PROC: 30233K1 Transfusion of Nonautologous Frozen Plasma into Peripheral Vein, Percutaneous Approach (ICD-10-PCS; principal; 2017-08-28)
PROC: 5A1955Z Respiratory Ventilation, Greater than 96 Consecutive Hours (ICD-10-PCS; principal; 2017-08-28)
PROC: 0BH17EZ Insertion of Endotracheal Airway into Trachea, Via Natural or Artificial Opening (ICD-10-PCS; 2017-09-01)
PROC: 0CJS8ZZ Inspection of Larynx, Via Natural or Artificial Opening Endoscopic (ICD-10-PCS; 2017-09-01)
DX: S37.042A Minor laceration of left kidney, initial encounter (principal); D62 Acute posthemorrhagic anemia; D69.6 Thrombocytopenia, unspecified; S37.012A Minor contusion of left kidney, initial encounter; S36.892A Contusion of other intra-abdominal organs, initial encounter; S70.12XA Contusion of left thigh, initial encounter; N17.9 Acute kidney failure, unspecified; D68.9 Coagulation defect, unspecified; R78.89 Finding of other specified substances, not normally found in blood; J96.01 Acute respiratory failure with hypoxia; G93.40 Encephalopathy, unspecified; E88.81 Metabolic syndrome and other insulin resistance; R31.0 Gross hematuria; J38.4 Edema of larynx; W18.09XA Striking against other object with subsequent fall, initial encounter; K21.9 Gastro-esophageal reflux disease without esophagitis; I10 Essential (primary) hypertension; E78.5 Hyperlipidemia, unspecified; J98.11 Atelectasis; K76.0 Fatty (change of) liver, not elsewhere classified; R58 Hemorrhage, not elsewhere classified; I73.9 Peripheral vascular disease, unspecified; E85.9 Amyloidosis, unspecified; E87.1 Hypo-osmolality and hyponatremia; E83.51 Hypocalcemia; E78.1 Pure hyperglyceridemia; E87.0 Hyperosmolality and hypernatremia; E56.1 Deficiency of vitamin K; F17.200 Nicotine dependence, unspecified, uncomplicated; J93.82 Other air leak; S40.012A Contusion of left shoulder, initial encounter; S70.11XA Contusion of right thigh, initial encounter; Y92.009 Unspecified place in unspecified non-institutional (private) residence as the place of occurrence of the external cause; Z86.73 Personal history of transient ischemic attack (TIA), and cerebral infarction without residual deficits; Z79.02 Long term (current) use of antithrombotics/antiplatelets; S30.0XXA Contusion of lower back and pelvis, initial encounter
CPT/HCPCS: 70450; 70486; 70490; 70551; 71045; 71046; 71250; 73080; 73590; 74176; 74177; 76881; 80048; 80048 91; 80053; 80074; 80076; 80202; 80306 90; 81003; 81241 90; 82436; 82550; 82550 91; 82570; 82948; 83010 90; 83605; 83615; 83735; 83883 90; 84100; 84133; 84145 90; 84300; 84443; 84478; 85007; 85014; 85018; 85025; 85025 91; 85027; 85046; 85049; 85060; 85220 90; 85230 90; 85240 90; 85260 90; 85335 90; 85378; 85384; 85610; 85611; 85613 90; 85651; 85730; 85730 90; 85732; 86021 90; 86038; 86078; 86140; 86141; 86147 90; 86160; 86160 90; 86618; 86757 90; 86780; 86850; 86880; 86900; 86901; 86920; 87040; 87070; 87086; 87205; 87389; 87449; 87641; 92523 GN; 92526 GN; 92610 GN; 93005; 94002; 94003; 94640; 94667; 94668; 94760; 94799; 95819; 97530 GO; 97530 GP; 99281; 99285; C1753; C9113; C9132; J0360; J0696; J1100; J2250; J2405; J2704; J3010; J3370; J3430; J7030; J7050; J7120; J8540; P9016; P9017